=== PATIENT | male | born 1985 | race Caucasian/White ===

== ENCOUNTER 2016-11-09 10:00 | Emergency (ER) | payer MEDICAID ==
[~2016-11-09] VITALS: Ht 167.6 cm; Wt 75.0 kg
[2016-11-09 10:06] VITALS: BP 170/84; PULSE 56; RESP 16; TEMP 98.3; O2SAT 99
[2016-11-09] MEDS ORDERED: SODIUM CHLOR 0.9% 1000 ML INJ 1,000 ML IV ONE ×2 (10:30→11:45)
[2016-11-09] MEDS ORDERED: HYDROmorphone HCL PF 1 MG/ML VIAL IV PUSH ONE ×2 (10:30→11:15)
[2016-11-09] MEDS ORDERED: ONDANSETRON HCL 4 MG/2 ML VIAL IV PUSH ONE (10:30)
[2016-11-09] MEDS ORDERED: SODIUM CHLORIDE 0.9% FLUSH 10 ML FLUSH IV FLUSH PRN (10:30)
[2016-11-09 10:31] VITALS: O2SAT 100
[2016-11-09] MEDS ORDERED: SERT-132 PO (10:33)
[2016-11-09] MEDS ORDERED: ALPR1TAB3 PO (10:34)
[2016-11-09 10:37] VITALS: BP 164/78; PULSE 55; RESP 16; O2SAT 100
[2016-11-09 10:44] LABS: AUTOMATED NEUTROPHIL # 8.5 TH/MM3 (1.8-7.7); BASOPHIL % 0.4 % (0.0-2.0); EOSINOPHIL # 0.2 TH/MM3 (0-0.4); EOSINOPHIL % 1.3 % (0.0-4.0); HEMO FLAGS DIFF FINAL; LYMPH % 27.6 % (9.0-44.0); LYMPHOCYTE # 3.6 TH/MM3 (1.0-4.8); MEAN CELL VOLUME 93.2 FL (80.0-100.0); MEAN CORPUSCULAR HEMOGLOBIN 31.1 PG (27.0-34.0); MEAN CORPUSCULAR HGB CONC 33.4 % (32.0-36.0); MONO % 4.9 % (0.0-8.0); NEUT % 65.8 % (16.0-70.0); PLATELET COUNT 217 TH/MM3 (150-450); RED BLOOD COUNT 5.47 MIL/MM3 (4.50-5.90); RED CELL DISTRIBUTION WIDTH 12.9 % (11.6-17.2); WHITE BLOOD COUNT 12.9 TH/MM3 (4.0-11.0)
--- NOTE | 2016-11-09 10:44 | RADRPT ---
EXAM DATE/TIME: 11/09/2016 10:21 [facility] COMPARISON: No previous studies available for comparison. INDICATIONS : Nausea and vomitting. MEDICAL HISTORY : None. SURGICAL HISTORY : None. ENCOUNTER: Initial ACUITY: 1 day PAIN SCORE: 5/10 LOCATION: Bilateral lower chest FINDINGS: A single view of the chest demonstrates the lungs to be symmetrically aerated without evidence of mas s, infiltrate or effusion. The cardiomediastinal contours are unremarkable. Osseous structures are intact. CONCLUSION: No acute disease. Jason Raya MD on November 09, 2016 at 10:41 Board Certified Radiologist. This report was verified electronically.
[2016-11-09 11:03] LABS: ALKALINE PHOSPHATASE 118 U/L (45-117); ALT (GPT) 40 U/L (12-78); CREATINE KINASE 204 U/L (39-308); TOTAL BILIRUBIN ADULT 1.3 MG/DL (0.2-1.0)
[2016-11-09 11:08] LABS: ANION GAP 17 MEQ/L (5-15); AST (GOT) 44 U/L (15-37); BICARBONATE 20.2 MEQ/L (21.0-32.0); BLOOD UREA NITROGEN 15 MG/DL (7-18); CHLORIDE 101 MEQ/L (98-107); GLOMERULAR FILTRATION RATE 55 ML/MIN (>89); SODIUM (NA) 138 MEQ/L (136-145)
[2016-11-09] MEDS ORDERED: PROCHLORPERAZINE INJ 10 MG/2 ML VIAL IV PUSH ONE (11:15)
[2016-11-09 11:26] VITALS: BP 177/102; PULSE 62; RESP 16; O2SAT 100
--- NOTE | 2016-11-09 11:39 | PD ---
HPI Chief Complaint: GI Complaint Time Seen by Provider: 10:05 Travel History International Travel<30 days: No Contact w/Intl Traveler<30days: No Traveled to known affect area: No History of Present Illness HPI This is a 31-year-old male who presents to the emergency department with gradual onset of severe abdominal pain associated with multiple episodes of vomiting, constant, worsening throughout the morning. He's never had symptoms like this before. He denies any fevers or chills but does feel sweaty. He says his bowel movements have been normal. He denies drinking heavy alcohol. He denies any pain medication use. [facility] Past Medical History Medical History: Denies Significant Hx Past Surgical History Surgical History: No Previous Surgery Social History Alcohol Use: Yes (SOCIALLY) Tobacco Use: No Substance Use: No Allergies-Medications (Allergen,Severity, Reaction): Coded Allergies: No Known Allergies (Unverified , 11/09/16) Reported Meds & Prescriptions Reported Meds & Active Scripts Active Reported Alprazolam 1 Mg Tab 1 Mg PO HS PRN Sertraline (Sertraline HCl) 50 Mg Tab 50 Mg PO DAILY Review of Systems Except as stated in HPI: all other systems reviewed are Neg Physical Exam Narrative GENERAL: Unwell-appearing, actively vomiting bilious material SKIN: Diaphoretic HEAD: Atraumatic. Normocephalic. EYES: Pupils equal and round. No injection or drainage. ENT: Moist mucous membranes NECK: Trachea midline. CARDIOVASCULAR: Regular rate and rhythm. No murmur appreciated. RESPIRATORY: Clear to auscultation. Breath sounds equal bilaterally. GASTROINTESTINAL: Abdomen soft, mildly tender to palpation diffusely with no rebound or guarding. MUSCULOSKELETAL: No obvious deformities. NEUROLOGICAL: Awake and alert. No obvious cranial nerve deficits. Moving all extremities. PSYCHIATRIC: Anxious Data Data Last Documented VS Vital Signs Date Time Temp Pulse Resp B/P Pulse Ox O2 Delivery O2 Flow Rate FiO2 11/09/16 13:20 60 16 126/73 100 11/09/16 10:37 Room Air 11/09/16 10:06 98.3 Orders Complete Blood Count With Diff (11/09/16 10:21) Comprehensive Metabolic Panel (11/09/16 10:21) Lipase (11/09/16 10:21) Lactic Acid (11/09/16 10:21) Urinalysis - C+S If Indicated (11/09/16 10:21) Ct Abd/Pel W Iv Contrast(Rout) (11/09/16 10:21) Iv Access Insert/Monitor (11/09/16 10:21) Ecg Monitoring (11/09/16 10:21) Oximetry (11/09/16 10:21) Sodium Chloride 0.9% Flush (Ns Flush) (11/09/16 10:30) Chest, Single Ap (11/09/16 10:21) Hydromorphone Pf Inj (Dilaudid Pf Inj) (11/09/16 10:30) Ondansetron Inj (Zofran Inj) (11/09/16 10:30) Sodium Chlor 0.9% 1000 Ml Inj (Ns 1000 M (11/09/16 10:30) Creatine Kinase (Cpk) (11/09/16 10:21) Hydromorphone Pf Inj (Dilaudid Pf Inj) (11/09/16 11:15) Prochlorperazine Inj (Compazine Inj) (11/09/16 11:15) Sodium Chlor 0.9% 1000 Ml Inj (Ns 1000 M (11/09/16 11:45) Us Abdomen Gallbladder (11/09/16 ) Iohexol 350 Inj (Omnipaque 350 Inj) (11/09/16 12:10) Labs Laboratory Tests Test 11/09/16 11/09/16 10:25 11:30 White Blood Count 12.9 TH/MM3 Red Blood Count 5.47 MIL/MM3 Hemoglobin 17.0 GM/DL Hematocrit 51.0 % Mean Corpuscular Volume 93.2 FL Mean Corpuscular Hemoglobin 31.1 PG Mean Corpuscular Hemoglobin 33.4 % Concent Red Cell Distribution Width 12.9 % Platelet Count 217 TH/MM3 Mean Platelet Volume 10.4 FL Neutrophils (%) (Auto) 65.8 % Lymphocytes (%) (Auto) 27.6 % Monocytes (%) (Auto) 4.9 % Eosinophils (%) (Auto) 1.3 % Basophils (%) (Auto) 0.4 % Neutrophils # (Auto) 8.5 TH/MM3 Lymphocytes # (Auto) 3.6 TH/MM3 Monocytes # (Auto) 0.6 TH/MM3 Eosinophils # (Auto) 0.2 TH/MM3 Basophils # (Auto) 0.0 TH/MM3 CBC Comment DIFF FINAL Differential Comment Sodium Level 138 MEQ/L Potassium Level 4.0 MEQ/L Chloride Level 101 MEQ/L Carbon Dioxide Level 20.2 MEQ/L Anion Gap 17 MEQ/L Blood Urea Nitrogen 15 MG/DL Creatinine 1.48 MG/DL Estimat Glomerular Filtration 55 ML/MIN Rate Random Glucose 163 MG/DL Lactic Acid Level 3.6 mmol/L Calcium Level 10.2 MG/DL Total Bilirubin 1.3 MG/DL Aspartate Amino Transf 44 U/L (AST/SGOT) Alanine Aminotransferase 40 U/L (ALT/SGPT) Alkaline Phosphatase 118 U/L Total Creatine Kinase 204 U/L Total Protein 8.6 GM/DL Albumin 5.0 GM/DL Lipase 79 U/L Urine Color YELLOW Urine Turbidity HAZY Urine pH 6.5 Urine Specific [place] 1.028 Urine Protein 100 mg/dL Urine Glucose (UA) TRACE mg/dL Urine Ketones 150 mg/dL Urine Occult Blood NEG Urine Nitrite NEG Urine Bilirubin NEG Urine Urobilinogen 2.0 MG/DL Urine Leukocyte Esterase NEG Urine RBC 1 /hpf Urine WBC 2 /hpf Urine Squamous Epithelial <1 /hpf Cells Urine Hyaline Casts 44 /lpf Urine Mucus MANY /lpf Microscopic Urinalysis Comment CULT NOT INDICATED MDM Medical Decision Making Medical Screen Exam Complete: Yes Emergency Medical Condition: Yes Interpretation(s) Afebrile, mild bradycardia, hypertensive Mild leukocytosis Anion gap of 17 Some renal insufficiency Lactic acid is 3.6 Total bilirubin is 1.3 Last 24 hours Impressions Chest X-Ray 11/09/16 1021 Signed Impressions: Service Date/Time: Wednesday, November 09, 2016 10:21 - CONCLUSION: No acute disease. Jason Raya MD Abdomen/Pelvis CT 11/09/16 1021 Signed Impressions: Service Date/Time: Wednesday, November 09, 2016 11:59 - CONCLUSION: 1. Mild hepatic steatosis. 2. No acute inflammatory process. Oscar West MD Gall Bladder Ultrasound 11/09/16 0000 Signed Impressions: Service Date/Time: Wednesday, November 09, 2016 12:51 - CONCLUSION: Fatty infiltration without duct dilatation or gallstones. Danilo Forman MD FACR Differential Diagnosis Gastritis, pancreatitis, cholelithiasis, cholangitis, perforated ulcer, pancreatitis Narrative Course This is a 31-year-old male who presents to the emergency department with gradual onset abdominal pain and vomiting. He is very ill-appearing on arrival , diaphoretic and actively vomiting. He was placed in a monitor and an IV was established. Labs are obtained which demonstrate a mild lactic acidosis. CT imaging and ultrasound were obtained both of which were reassuring. I'm not sure was causing the patient's symptoms but he feels much better after IV fluids and pain control. I think he's safe to follow-up as an outpatient and I can't identify an emergent etiology of his symptoms. Patient will be discharged home. Diagnosis Primary Impression: Abdominal pain Qualified Code: R10.84 - Generalized abdominal pain Patient Instructions: General Instructions Additional Instructions: If you develop severe or worsening abdominal pain, fever>100.4, persistent vomiting or inability to eat or drink return to the emergency department immediately. Follow up with your primary care physician in 1-2 days for a check-up. Disposition: 01 DISCHARGE HOME Condition: Stable Bryanna Horan MD November 09, 2016 11:39
[2016-11-09 12:06] LABS: BLOOD, URINE NEG (NEG); COMMENT (UR) CULT NOT INDICATED; CULTURE IF INDICATED CULT NOT INDICATED; GLUCOSE,URINE TRACE mg/dL (NEG); HYALINE CAST, URINE 44 /lpf (RARE); KETONE, URINE 150 mg/dL (NEG); MUCUS URINE MANY /lpf (OCC); NITRITE,URINE NEG (NEG); PH, URINE 6.5 (5.0-8.5); SQUAMOUS EPITHELIAL CELL URINE <1 /hpf (0-5); URINE COLOR YELLOW (YELLW/STRAW)
[2016-11-09] MEDS ORDERED: IOHEXOL 350 MG/ML 10 ML VIAL (for RAD DIAG) IV ONE (12:10)
--- NOTE | 2016-11-09 12:28 | RADRPT ---
EXAM DATE/TIME: 11/09/2016 11:59 [facility] COMPARISON: No previous studies available for comparison. INDICATIONS : Woke up with genralized abdominal pain, nausea and vomiting. IV CONTRAST: 70 cc Omnipaque 350 (iohexol) IV ORAL CONTRAST: No oral contrast ingested. RADIATION DOSE: 5.48 CTDIvol (mGy) MEDICAL HISTORY : Spleenic rupture, no surgery SURGICAL HISTORY : None. ENCOUNTER: Initial ACUITY: 1 day PAIN SCALE: 3/10 LOCATION: Abdomen TECHNIQUE: Volumetric scanning of the abdomen and pelvis was performed. Using automated exposure control and ad justment of the mA and/or kV according to patient size, radiation dose was kept as low as reasonably achievable to obtain optimal diagnostic quality images. FINDINGS: LOWER LUNGS: The visualized lower lungs are clear. LIVER: Decreased density without lesion. There is no dilation of the biliary tree. No calcified gallstones . SPLEEN: Normal size without lesion. PANCREAS: Within normal limits. KIDNEYS: Normal in size and shape. There is no mass, stone or hydronephrosis. ADRENAL GLANDS: Within normal limits. VASCULAR: There is no aortic aneurysm. BOWEL/MESENTERY: The stomach, small bowel, and colon demonstrate no acute abnormality. There is no free intraperitone al air or fluid. There is relative nondistention of the colon. ABDOMINAL WALL: Within normal limits. RETROPERITONEUM: There is no lymphadenopathy. BLADDER: No wall thickening or mass. REPRODUCTIVE: Within normal limits. INGUINAL: There is no lymphadenopathy or hernia. MUSCULOSKELETAL: Within normal limits for patient age. CONCLUSION: 1. Mild hepatic steatosis. 2. No acute inflammatory process. Oscar West MD on November 09, 2016 at 12:19 Board Certified Radiologist. This report was verified electronically.
[2016-11-09 13:20] VITALS: BP 126/73; PULSE 60; RESP 16; O2SAT 100
--- NOTE | 2016-11-09 13:47 | RADRPT ---
EXAM DATE/TIME: 11/09/2016 12:51 [facility] COMPARISON: No previous studies available for comparison. INDICATIONS : Right upper qaudrant pain. MEDICAL HISTORY : Abdominal pain. Vomiting. SURGICAL HISTORY : ENCOUNTER: Initial ACUITY: 1 day PAIN SCORE: 0/10 LOCATION: Right upper quadrant MEASUREMENTS: LIVER: 15.5 cm length COMMON DUCT: 5 mm RIGHT KIDNEY: 11.4 x 5.2 x 4.3 cm FINDINGS: LIVER: The liver is echogenic consistent with fatty infiltration. COMMON DUCT: No intraluminal mass or stone visualized. GALLBLADDER: Contains no stones, demonstrates no wall thickening or pericholecystic fluid. PANCREAS: The visualized portions are within normal limits. RIGHT KIDNEY: No evidence of hydronephrosis, stone, or mass. CONCLUSION: Fatty infiltration without duct dilatation or gallstones. Danilo Forman MD FACR on November 09, 2016 at 13:45 Board Certified Radiologist. This report was verified electronically.
== END 2016-11-09 14:47 | disposition home or self-care (01) ==
LOC: NEPE 10:00
DX: R10.84 Generalized abdominal pain (principal); R11.10 Vomiting, unspecified; R61 Generalized hyperhidrosis; E87.2 Acidosis
CPT/HCPCS: 71010; 74177; 76705; 80053; 81001; 82550; 83605; 83690; 85025; 96361; 96374; 96375; 96376; 99284; J0780; J1170; J2405; J7030; Q9967